=== PATIENT | male | born 1980 | race Caucasian/White ===

== ENCOUNTER 2020-03-05 06:20 | Emergency (ER) | payer OTHER ==
[~2020-03-05] VITALS: Ht 177.8 cm; Wt 77.1 kg
[2020-03-05] MEDS ORDERED: ADDERALL 20 MG20 MG PO (06:26)
[2020-03-05] MEDS ORDERED: AMOXICILLIN 50500 MG PO (06:29)
[2020-03-05] MEDS ORDERED: TRAMADOL 50 MG50 MG PO (06:29)
[2020-03-05 06:35] VITALS: BP 109/70
== END 2020-03-05 06:35 | disposition home or self-care (01) ==
LOC: M.ERS 06:20
DX: K02.9 Dental caries, unspecified (principal)